=== PATIENT | male | born 1990 | race Caucasian/White ===

== ENCOUNTER 2021-03-14 23:28 | Emergency (ER) | payer SELFPAY ==
[~2021-03-14] VITALS: Ht 188 cm; Wt 136.3 kg
--- NOTE | 2021-03-14 23:59 | PHYS DOC ---
General Adult EDM: Chief Complaint: ALCOHOL INTOXICATION HPI: HPI: 31-year-old male with unknown past medical history, presents to the ED brought in by EMS, found down in parking lot of concert venue ([employer] Hx unobtainable. Cannot recall prior events. Does admit to alcohol use. States no to being vaccinated for Covid. States yes to tetanus vaccine being up-to-date. Review of Systems: Review of Systems: Review of system unobtainable due to patient's intoxication Heart Score: C/O Chest Pain: N/A Risk Factors: Risk Factors: DM, Current or recent (<one month) smoker, HTN, HLP, family history of CAD, obesity. Risk Scores: Score 0 - 3: 2.5% MACE over next 6 weeks - Discharge Home Score 4 - 6: 20.3% MACE over next 6 weeks - Admit for Clinical Observation Score 7 - 10: 72.7% MACE over next 6 weeks - Early Invasive Strategies Physical Exam: PE: Constitutional: Alcohol on breath with ataxic movements and slurred speech, cards assistance when transferring from EMS stretcher to ED bed HENT: No septal hematoma, large horizontal abrasion over forehead and multiple abrasions over both cheeks Eyes: PERRLA, EOMI, conjunctiva normal, no discharge, no raccoon eyes on arrival, no hyphema, Neck: Normal range of motion, supple, no midline neck pain Cardiovascular: S1/2 present, regular rhythm Lungs & Thorax: Speaking in full sentences, bilateral equal chest rise, no tachypnea or increased work of breathing Abdomen: soft, no tenderness, Skin: Warm, very sweaty-shirt is wet, shorts are soiled in urine Back: No midline spinal step-offs or tenderness, no CVA tenderness. 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 [] Psychologic: Calm with no agitation EKG: EKG: [] Radiology/Procedures: Radiology/Procedures: IMAGING REPORT Signed PATIENT: IVETTE DENNISON ACCOUNT: [id number] : 1990 LOCATION: ER AGE: 31 SEX: M EXAM STATUS: REG ER ORD. PHYSICIAN: AC MURPHY DO REASON: intox fall PROCEDURE: CT HEAD AND CERVICAL SPINE WO EXAM: 1. CT HEAD WITHOUT CONTRAST. 2. CT FACIAL BONES WITHOUT CONTRAST. 3. CT CERVICAL SPINE WITHOUT CONTRAST. HISTORY: Trauma, fall. TECHNIQUE: Computed tomography of the head, facial bones and cervical spine was performed without intravenous contrast. One or more of the following indivi dualized dose reduction techniques were utilized for this examination: 1. Automated exposure control. 2. Adjustment of the mA and/or kV according to patient size. 3. Use of iterative reconstruction technique. COMPARISON: None. FINDINGS: There is no intracranial hemorrhage. Perez-white differentiation is preserved. The ventricles are normal in size and position. The temporal bones are unremarkable. The calvarium reveals no suspicious lesions. There are nondisplaced fractures of the anterior and lateral smart of the right maxillary sinus. Another fracture intersects the right inferior orbital rim. There is no orbital blowout fracture. Some hemorrhage is noted in the right maxillary sinus. There is soft tissue swelling throughout the right cheek and e yelids. There is no intraorbital injury. There is a chronic fracture of the left lamina papyracea. A small amount of debris is noted within the right aspect of the frontal sinus. Alignment is maintained. The craniocervical junction is unremarkable. No fra ctures are identified. Intervertebral disc heights are maintained. There is no prevertebral soft tissue swelling. There is no central canal stenosis or neural foraminal stenosis. There are mild groundglass opacities in the apices. IMPRESSION: 1. No acute intracranial findings. 2. Fractures of the anterior and lateral wall of the right maxillary sinus, extending to the right inferior orbital rim. 3. No cervical fracture or malalignment. Electronically signed by: Rachel Mills MD (03/15/2021 4:30 AM) [facility] DICTATED and SIGNED BY: DEMETRIUS MILLS MD DATE: 03/15/21 [id number] 0 Course & Med Decision Making: Course & Med Decision Making Pertinent Labs and Imaging studies reviewed. (See chart for details) Concern for significant alcohol intoxication (366) in the setting of head and facial trauma, unknown mechanism, CT images consistent with right inferior orbital wall fracture and right maxillary sinus fracture with no evidence of blowout fracture. I was informed by RN pt had not received any imaging and I reassessed pt. Pt with no decision made capacity at that time, significant intoxication/ataxic movements with signs of trauma, and not alert and oriented. Patient unable to recall my explanation/reasoning for imaging studies to rule out life or limb threatening injuries including permanent visual impairment. Haldol ordered at 2:30 AM. Upon return from CT scan patient more awake and alert but still with no decision made capacity, not oriented with minimal recall, still no recall of prior ED events. Upon ed ambulation, was very unsteady on his feet/swaying/requiqing assistance, concern for persistent danger to self. I activated code armstrong and explained to charge and household worker need for Haldol- Wendy agreed pt was not oriented and still intoxicated. Patient persistently refusing x-ray imaging, fluorescein eye exam and CT orbits, even at time of sober re-evaluation around 5 AM such that patient had a steady gait, is able to recall his home address and how he will get home. Still cannot recall how he injured himself. I suspect significant alcohol intoxication and concern for legal ramifications of right ankle boot. Pt allowed me to reassess his eye but would not allow for visual acuity of fluorescein exam despite risk of globe rupture or permanent visual impairment. Patient refusing any extremity x-rays to evaluate for fractures-UEs neurovascularly intact. Myself and staff offered to call his [facility] at [facility]. Pt refused to involve father in his medical care (would not provide phone number to rn) but states he has had Lasix eye corrective surgery 6-7 years ago with him, no contact lenses or glasses. Patient denies any right eye blurry vision, blurry vision or epiphora. Pt was convinced he had no orbital wall fracture. I was able to educate patient on urgent need for ophthalmology follow-up (to evaluate for retinal tears and have thorough eye exam) and antibiotics given this is considered as an open fracture, pt states "really?" Patient was given very strict ED return precautions for any change in vision, headache, nausea, vomiting, neurologic deficits for repeat head injury. The patient has decided to leave our facility against medical advice. I have assessed patient's ability to make informed decision and feel the patient has the capacity to comprehend information regarding the current medical condition and appreciates the impact of the disease or condition and the consequences of various options for treatment, including foregoing treatment. The patient possesses the ability to evaluate all treatment options, comparing the risks and benefits of each option, communicate his or her choice in a consistent manner over time, and is able to make rational choices. I explained to the patient further testing, treatment, and evaluation I would like to perform in the emergency department visit as well as any possible alternatives that can be accomplished in a timely manner. I have outlined the possible risks of foregoing any or all of these interventions and the patient understands and acknowledges that the decision to leave may result in undesirable consequences such as , permanent disability, blindness or visual impairment, and/or loss of current lifestyle. Even though leaving AMA is not ideal, I have instructed the patient to follow any discharge instructions given, take any medications prescribed, and resume care as soon as possible with another provider. This conversation was witnessed by another member of the emergency department staff and we clearly communicated the patient is welcome to return anytime to continue care at our facility. Dragon Disclaimer: Dragon Disclaimer: This electronic medical record was generated, in whole or in part, using a voice recognition dictation system. Departure Departure Impression: Primary Impression: Alcohol intoxication Additional Impressions: Fracture of inferior orbital wall Fracture of maxillary sinus Left against medical advice Disposition: LEFT AGAINST MEDICAL ADVICE Condition: STABLE Referrals: MIGUEL ANGEL CRONIN MD Follow-up with your primary care physician in 24 to 48 hours OR FOLLOW UP WITH FAMILY MEDICINE: [address] [facility] [address] [place] [address] Patient Instructions: Alcohol Intoxication, Discharge Against Medical Advice, Orbital Floor Fracture, Non-Blowout Additional Instructions: FOLLOW UP WITH OPTHALMOLOGY: FOR DEFINITIVE MANAGEMENT of right inferior orbital wall fracture within the next 5 days [facility] [place] [address] [facility] [facility] [address] [place] [address] Scripts Cephalexin (CEPHALEXIN) 500 Mg Capsule 1 CAP PO QID for 7 Days, #28 CAP Prov: AC MURPHY DO 03/15/21 AC MURPHY DO Mar 14, 2021 23:59
[2021-03-15 00:04] LABS: HEMATOCRIT 38.9 % (39.0-53.0); HEMOGLOBIN 14.1 g/dL (13.0-17.5); MEAN CORPUSCULAR HEMOGLOBIN 32 pg (25-35); MEAN CORPUSCULAR HGB CONC 36 g/dL (31-37); MEAN CORPUSCULAR VOLUME 88 fL (79-100); RED BLOOD COUNT 4.43 x10^6/uL (4.30-5.70); WHITE BLOOD COUNT 10.7 x10^3/uL (4.0-11.0)
[2021-03-15 00:05] LABS: BASO % 0 % (0-3); EOS # 0.1 x10^3/uL (0.0-0.7); EOS % 1 % (0-3); LYMPH % 19 % (24-48); MONO # 0.7 x10^3/uL (0.0-1.1); MONO % 7 % (0-9); NEUT # 7.8 x10^3/uL (1.8-7.7); NEUT % 73 % (31-73); PLATELET COUNT 306 x10^3/uL (140-400); RED CELL DISTRIBUTION WIDTH 12.4 % (11.5-14.5)
[2021-03-15] MEDS ORDERED: UNABLE MC (00:06)
[2021-03-15 00:15] LABS: CALCIUM 8.2 mg/dL (8.5-10.1); CREATININE 1.1 mg/dL (0.7-1.3); GFR 79.1; POTASSIUM 3.4 mmol/L (3.5-5.1)
[2021-03-15 00:21] LABS: ALBUMIN 4.2 g/dL (3.4-5.0); ALBUMIN/GLOBULIN RATIO 1.4 (1.0-1.7); TOTAL BILIRUBIN 0.5 mg/dL (0.2-1.0); TOTAL PROTEIN 7.2 g/dL (6.4-8.2)
[2021-03-15 02:00] VITALS: BP 96/62
[2021-03-15] MEDS ORDERED: HALOPERIDOL LACTATE 5 MG/ML VIAL. ONE (02:24)
[2021-03-15] MEDS ORDERED: MULTIVIT INFUSN,ADULT 4,VIT K 10 ML, THIAMINE INJ 100 MG, FOLIC ACID INJ 1 MG in IV NOR... IV ONE (02:30)
[2021-03-15] MEDS ORDERED: HALOPERIDOL LACTATE 5 MG/ML VIAL. IVP ONE (02:30)
[2021-03-15] MEDS ORDERED: IV NORMAL SALINE 1000ML BAG 1,000 ML IV ONE (02:30)
[2021-03-15] MEDS ORDERED: diphenhydrAMINE 50 MG/ML VIAL IVP ONE (03:30)
--- NOTE | 2021-03-15 04:32 | RAD ---
EXAM: 1. CT HEAD WITHOUT CONTRAST. 2. CT FACIAL BONES WITHOUT CONTRAST. 3. CT CERVICAL SPINE WITHOUT CONTRAST. HISTORY: Trauma, fall. TECHNIQUE: Computed tomography of the head, facial bones and cervical spine was performed without int ravenous contrast. One or more of the following individualized dose reduction techniques were utilize d for this examination: 1. Automated exposure control. 2. Adjustment of the mA and/or kV according to patient size. 3. Use of iterative reconstruction technique. COMPARISON: None. FINDINGS: There is no intracranial hemorrhage. Perez-white differentiation is preserved. The ventricl es are normal in size and position. The temporal bones are unremarkable. The calvarium reveals no suspicious lesions. There are nondisplaced fractures of the anterior and lateral smart of the right maxillary sinus. Anot her fracture intersects the right inferior orbital rim. There is no orbital blowout fracture. Some he morrhage is noted in the right maxillary sinus. There is soft tissue swelling throughout the right ch manzanita and eyelids. There is no intraorbital injury. There is a chronic fracture of the left lamina geoff racea. A small amount of debris is noted within the right aspect of the frontal sinus. Alignment is maintained. The craniocervical junction is unremarkable. No fractures are identified. In tervertebral disc heights are maintained. There is no prevertebral soft tissue swelling. There is no central canal stenosis or neural foraminal stenosis. There are mild groundglass opacities in the apices. IMPRESSION: 1. No acute intracranial findings. 2. Fractures of the anterior and lateral wall of the right maxillary sinus, extending to the right in ferior orbital rim. 3. No cervical fracture or malalignment. Electronically signed by: Rachel Mills MD (03/15/2021 4:30 AM) [facility]
[2021-03-15] MEDS ORDERED: CEPH500C PO (04:45)
[2021-03-15] MEDS ORDERED: FLUORESCEIN OPHTH TEST STRIP. OD ONE (04:45)
== END 2021-03-15 05:04 | disposition left against medical advice (07) ==
LOC: ER 23:28
DX: S02.401A Maxillary fracture, unspecified side, initial encounter for closed fracture (principal); S02.30XA Fracture of orbital floor, unspecified side, initial encounter for closed fracture; R51.9 Headache, unspecified; M54.2 Cervicalgia; F10.129 Alcohol abuse with intoxication, unspecified; Y90.8 Blood alcohol level of 240 mg/100 ml or more; W18.39XA Other fall on same level, initial encounter; Y93.89 Activity, other specified; Y92.89 Other specified places as the place of occurrence of the external cause; Y99.8 Other external cause status
CPT/HCPCS: 36415; 70450; 70486; 72125; 80053; 82550; 84484; 85025; 96361; 96365; 99285; G0480; J3411; J3490; J7030